=== PATIENT | female | born 1985 | race African-American/Black ===

== ENCOUNTER 2016-11-24 17:57 | Emergency (ER) | payer OTHER ==
[~2016-11-24] VITALS: Ht 165.1 cm; Wt 164.2 kg
--- NOTE | ~2016-11-24 | EKG ---
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
[~2016-11-24 17:57] MED LIST: AMOXICILLIN875 MG PO; ANTIFUNGAL15 G1 TP; APAP/CODEINE ELI5 M1 OR; AZITHROMYCIN1 GM; B12INJ; BACTRIM DS TAB1 EACH PO; CABERGOLINE 0.0.5 M1 PO; DIFLUCAN150 MG PO; DOXYCYCLINE 10100 MG PO; FLAGYL500 MG PO; GUAIFENESIN WI120 ML; HYDROCHLOROTH12.5 M1 PO; IBUPROFEN 600600 M1 PO; LISINOPRIL10 MG PO; MOBIC15 MG PO; NAPROSYN500 MG PO; NORCO 5-325 TA1 EACH PO; ONDANSETRON HCL4 M2 PO; PHENTERMINE H37.5 MG PO; PREDNISONE50 MG PO; PROMETHAZINE/C118 ML PO; PROTONIX40 M1 PO; PROTONIX40 MG PO; TOPAMAX50 MG PO; TRAMADOL 50 MG50 MG PO; TUSSIONEX PENN473 ML PO; VALIUM2 MG PO; VICODIN 5-3001 EACH; VITAMIN D 5050000 I1 PO; ZPAK PO
[2016-11-24 18:58] LABS: ABSOLUTE NEUTROPHILS 3.4 thou/uL (1.4-8.2); BASOPHILS 0.3 % (0.0-2.0); EOSINOPHILS 0.3 % (0.0-3.0); HEMATOCRIT 36.7 % (37.0-47.0); HEMOGLOBIN 11.8 gm/dL (12.0-15.0); LYMPHOCYTES 17.7 % (24.0-44.0); MCH 25.2 pg (26.0-34.0); MCHC 32.3 % (28.0-37.0); MONOCYTES 8.6 % (1.0-8.0); PLATELET COUNT 384 thou/uL (150-400); POLYS 73.1 % (36.0-66.0); RDW 16.4 % (10.5-14.5); WBC 4.6 thou/uL (4.0-11.0)
[2016-11-24 19:06] LABS: CREATININE 0.8 mg/dL (0.6-1.3); POTASSIUM 3.9 mmol/L (3.5-5.1)
[2016-11-24 19:12] LABS: ALBUMIN 3.6 g/dL (3.4-5.0); TOTAL BILIRUBIN 0.2 mg/dL (<0.1-1.0); TOTAL PROTEIN 7.8 g/dL (6.4-8.2)
[2016-11-24 19:14] LABS: MANUAL DIFF NO
[2016-11-24] MEDS ORDERED: TESSALON PERLE100 MG PO (20:46)
[2016-11-24] MEDS ORDERED: ZANTAC 150MG T150 MG PO (20:46)
[2016-11-24] MEDS ORDERED: ONDANSETRON HCL4 M2 PO (20:46)
[2016-11-24 21:02] VITALS: BP 150/75
== END 2016-11-24 21:02 | disposition home or self-care (01) ==
LOC: ER 17:57
PROVIDERS: Physician Assistant
DX: R05 Cough (principal); K21.9 Gastro-esophageal reflux disease without esophagitis; B34.9 Viral infection, unspecified; F17.210 Nicotine dependence, cigarettes, uncomplicated; F10.99 Alcohol use, unspecified with unspecified alcohol-induced disorder; I10 Essential (primary) hypertension

== ENCOUNTER 2017-03-02 19:53 | Emergency (ER) | payer OTHER ==
[~2017-03-02] VITALS: Ht 165.1 cm; Wt 156.5 kg
[~2017-03-02 19:53] MED LIST changes: +TESSALON PERLE100 MG PO; +ZANTAC 150MG T150 MG PO
[2017-03-02] MEDS ORDERED: DOSTINEX (20:16)
[2017-03-02 23:09] LABS: URINE BILIRUBIN NEGATIVE (Negative); URINE BLOOD TRACE (Negative); URINE COLOR YELLOW; URINE GLUCOSE-RANDOM* 2+ (Negative); URINE KETONES NEGATIVE (Negative); URINE LEUKOCYTES-REFLEX NEGATIVE (Negative); URINE PROTEIN (DIPSTICK) NEGATIVE (Negative); URINE SPECIFIC GRAVITY 1.025 (1.003-1.035); URINE UROBILINOGEN 0.2 E.U./dl (0.2-1.0)
[2017-03-02] MEDS ORDERED: FLAGYL500 MG PO (23:40)
[2017-03-02 23:49] VITALS: BP 142/51
[2017-03-04 18:06] LABS: CHLAMYDIA TRACHOMATIS-PCR Negative (Negative); NEISSERIA GONORRHEA-PCR Negative (Negative)
== END 2017-03-02 23:53 | disposition home or self-care (01) ==
LOC: ER 19:53
PROVIDERS: Emergency Medicine
DX: N76.0 Acute vaginitis (principal); I10 Essential (primary) hypertension; F17.210 Nicotine dependence, cigarettes, uncomplicated; F10.99 Alcohol use, unspecified with unspecified alcohol-induced disorder

== ENCOUNTER 2018-02-14 09:43 | Emergency (ER) | payer OTHER ==
[~2018-02-14] VITALS: Ht 165.1 cm; Wt 142.9 kg
--- NOTE | ~2018-02-14 | EKG ---
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
[~2018-02-14 09:43] MED LIST changes: +DOSTINEX
[2018-02-14] MEDS ORDERED: [UNRECOGNIZED DRUG - OTHER] (10:47)
[2018-02-14 11:28] LABS: ABSOLUTE NEUTROPHILS 1.8 thou/uL (1.4-8.2); BASOPHILS 0.9 % (0.0-2.0); EOSINOPHILS 2.6 % (0.0-3.0); HEMATOCRIT 32.4 % (37.0-47.0); HEMOGLOBIN 10.5 gm/dL (12.0-15.0); LYMPHOCYTES 37.4 % (24.0-44.0); MCH 24.5 pg (26.0-34.0); MCHC 32.5 g/dL (28.0-37.0); MCV 75.3 fL (80.0-100.0); MONOCYTES 11.4 % (1.0-8.0); PLATELET COUNT 436 thou/uL (150-400); POLYS 47.7 % (36.0-66.0); RBC 4.31 mil/uL (4.20-5.00); RDW 18.7 % (10.5-14.5); WBC 3.8 thou/uL (4.0-11.0)
[2018-02-14 11:36] LABS: ANION GAP 6 mmol/L (7-16); BUN 7 mg/dL (7-18); CALCIUM 8.8 mg/dL (8.5-10.1); CHLORIDE 107 mmol/L (98-107); CO2 27 mmol/L (21-32); CREATININE 0.7 mg/dL (0.6-1.0); GLUCOSE 81 mg/dL (74-106); POTASSIUM 3.8 mmol/L (3.5-5.1); SODIUM 140 mmol/L (136-145)
[2018-02-14 11:41] LABS: PROTIME 10.5 Seconds (9.3-11.4)
[2018-02-14 11:44] LABS: SGOT 18 U/L (15-37); SGPT 16 U/L (30-65); TOTAL BILIRUBIN 0.2 mg/dL (<0.1-1.0); TOTAL PROTEIN 6.8 g/dL (6.4-8.2); TROPONIN-I < 0.04 ng/mL (<0.06)
[2018-02-14 12:48] LABS: ANISOCYTOSIS 2+; MICROCYTES 1+
[2018-02-14 12:49] LABS: OVALOCYTES FEW
[2018-02-14 13:00] VITALS: BP 126/66
== END 2018-02-14 13:37 | disposition home or self-care (01) ==
LOC: ER 09:43
PROVIDERS: Physician Assistant
DX: R00.2 Palpitations (principal); R06.00 Dyspnea, unspecified; I10 Essential (primary) hypertension; G43.909 Migraine, unspecified, not intractable, without status migrainosus; F17.210 Nicotine dependence, cigarettes, uncomplicated; Z88.5 Allergy status to narcotic agent

== ENCOUNTER 2018-04-16 06:55 | Emergency (ER) | payer OTHER ==
[~2018-04-16] VITALS: Ht 172.7 cm; Wt 147.4 kg
[~2018-04-16 06:55] MED LIST changes: +[UNRECOGNIZED DRUG - OTHER]
[2018-04-16 07:05] VITALS: BP 95/38
[2018-04-16] MEDS ORDERED: TUSSIONEX PENN115 ML PO (07:54)
[2018-04-16] MEDS ORDERED: MUCINEX DM ER1 EACH PO (07:56)
[2018-04-16] MEDS ORDERED: TOBRAMYCIN SULFA5 M1 OPHTHALMIC (08:02)
== END 2018-04-16 08:05 | disposition home or self-care (01) ==
LOC: ER 06:55
DX: J20.8 Acute bronchitis due to other specified organisms (principal); B97.89 Other viral agents as the cause of diseases classified elsewhere; H57.11 Ocular pain, right eye; I10 Essential (primary) hypertension; G43.909 Migraine, unspecified, not intractable, without status migrainosus; F17.210 Nicotine dependence, cigarettes, uncomplicated; Z88.5 Allergy status to narcotic agent

== ENCOUNTER 2018-08-19 00:42 | Emergency (ER) | payer OTHER ==
[~2018-08-19] VITALS: Ht 165.1 cm; Wt 127.5 kg
[~2018-08-19 00:42] MED LIST changes: +MUCINEX DM ER1 EACH PO; +TOBRAMYCIN SULFA5 M1 OPHTHALMIC; +TUSSIONEX PENN115 ML PO
[2018-08-19] MEDS ORDERED: OMEPRAZOLE 20 M20 M1 PO (01:15)
[2018-08-19] MEDS ORDERED: CLARITIN10 MG PO (01:16)
[2018-08-19] MEDS ORDERED: NORCO 5-325 TA1 EACH PO (01:17)
[2018-08-19] MEDS ORDERED: FLONASE 0.05%50 MCG NASAL (01:17)
[2018-08-19] MEDS ORDERED: DIFLUCAN150 M1 PO (02:05)
[2018-08-19 02:49] VITALS: BP 126/65
== END 2018-08-19 02:49 | disposition home or self-care (01) ==
LOC: ER 00:42
DX: B37.3 Candidiasis of vulva and vagina (principal); F17.210 Nicotine dependence, cigarettes, uncomplicated; I10 Essential (primary) hypertension; G43.909 Migraine, unspecified, not intractable, without status migrainosus; Z90.721 Acquired absence of ovaries, unilateral; Z88.8 Allergy status to other drugs, medicaments and biological substances

== ENCOUNTER 2018-11-19 21:03 | Emergency (ER) | payer OTHER ==
[~2018-11-19] VITALS: Ht 165.1 cm; Wt 120.7 kg
[~2018-11-19 21:03] MED LIST changes: +CLARITIN10 MG PO; +DIFLUCAN150 M1 PO; +FLONASE 0.05%50 MCG NASAL; +OMEPRAZOLE 20 M20 M1 PO
[2018-11-19] MEDS ORDERED: AZITHROMYCIN 2250 MG PO (22:40)
[2018-11-19 23:06] VITALS: BP 115/67
== END 2018-11-19 23:07 | disposition home or self-care (01) ==
LOC: ER 21:03
DX: J40 Bronchitis, not specified as acute or chronic (principal); I10 Essential (primary) hypertension; G43.909 Migraine, unspecified, not intractable, without status migrainosus; F17.210 Nicotine dependence, cigarettes, uncomplicated; Z88.6 Allergy status to analgesic agent

== ENCOUNTER 2019-01-02 00:08 | Emergency (ER) | payer OTHER ==
[~2019-01-02] VITALS: Ht 165.1 cm; Wt 119.3 kg
[~2019-01-02 00:08] MED LIST changes: +AZITHROMYCIN 2250 MG PO
[2019-01-02] MEDS ORDERED: CARAFATE 1 GM TA1 G1 PO (00:24)
[2019-01-02 02:11] VITALS: BP 124/68
== END 2019-01-02 02:12 | disposition home or self-care (01) ==
LOC: ER 00:08
DX: J02.9 Acute pharyngitis, unspecified (principal); B34.9 Viral infection, unspecified; F17.210 Nicotine dependence, cigarettes, uncomplicated; I10 Essential (primary) hypertension; G43.909 Migraine, unspecified, not intractable, without status migrainosus; Z88.8 Allergy status to other drugs, medicaments and biological substances

== ENCOUNTER 2019-01-09 18:42 | Emergency (ER) | payer OTHER ==
[~2019-01-09] VITALS: Ht 165.1 cm; Wt 117.0 kg
[~2019-01-09 18:42] MED LIST changes: +CARAFATE 1 GM TA1 G1 PO
[2019-01-09] MEDS ORDERED: NORCO 5-325 TA1 EACH PO (19:16)
[2019-01-09 20:20] VITALS: BP 127/79
== END 2019-01-09 20:20 | disposition home or self-care (01) ==
LOC: ER 18:42
DX: S63.681A Other sprain of right thumb, initial encounter (principal); H11.32 Conjunctival hemorrhage, left eye; I10 Essential (primary) hypertension; G43.909 Migraine, unspecified, not intractable, without status migrainosus; Z88.6 Allergy status to analgesic agent; F17.210 Nicotine dependence, cigarettes, uncomplicated; V49.49XA Driver injured in collision with other motor vehicles in traffic accident, initial encounter; Y93.89 Activity, other specified; Y92.89 Other specified places as the place of occurrence of the external cause; Y99.8 Other external cause status